=== PATIENT | female | born 1970 | race Caucasian/White ===

== ENCOUNTER 2016-08-10 18:20 | Emergency (ER) | payer BC ==
[2016-08-10 20:03] LABS: BASOPHILS 1.1 %; BASOPHILS ABSOLUTE 0.07 10/3/uL (0.0-0.16); EOSINOPHILS 1.1 %; EOSINOPHILS ABSOLUTE 0.07 10/3/uL (0.0-0.53); ER CBC TAT 0 Hrs 05 Mins; HEMATOCRIT 36.7 % (36.0-48.0); HEMOGLOBIN 12.2 g/dL (12.0-16.0); IMMATURE GRANULOCYTES 0.2 %; IMMATURE GRANULOCYTES ABSOLUTE 0.01 10/3/uL (0.0-0.11); MEAN CORPUS HGB CONC 33.2 g/dL (32.0-36.0); MEAN CORPUSCULAR HEMOGLOB 29.6 pg (26.0-34.0); MEAN CORPUSCULAR VOLUME 89.1 fL (80-100); MEAN PLATELET VOLUME 11.3 fL (9.2-13.0); MONOCYTES 6.3 %; MONOCYTES ABSOLUTE 0.42 10/3/uL (0.21-1.20); NEUTROPHILS 61.3 %; NEUTROPHILS ABSOLUTE 4.09 10/3/uL (2.02-8.40); PLATELET COUNT 181 10/3/uL (150-400); RBC DISTRIBUTION WIDTH 13.8 % (12.0-16.0); RED CELL COUNT 4.12 10/6/uL (4.0-5.6); WHITE BLOOD CELLS 6.7 10/3/uL (4.5-10.5)
[2016-08-10 20:04] LABS: MANUAL DIFF NO %
[2016-08-10 20:12] LABS: ASCORBIC ACID (UR NOT ORDER) NEG (NEG); BILIRUBIN, URINE NEGATIVE (NEG); ER URINALYSIS TAT 0 Hrs 14 Mins; KETONE, URINE NEGATIVE (NEG); LEUKOCYTE ESTERASE(NOT OR MOD (NEG); NITRITE (URINE) NEG (NEG); WBC (NOT ORDERED) (RFLEX) 10 (0-5)
[2016-08-10 20:21] LABS: A/G RATIO 1.1 (0.7-1.9); ALBUMIN 4.3 G/DL (3.5-5.0); ALKALINE PHOSPHATASE 73 U/L (45-117); BUN (BLOOD UREA NITROGEN) 10 MG/DL (6-23); CALCIUM, SERUM 8.6 MG/DL (8.5-10.4); CHLORIDE, SERUM 109 MMOL/L (96-112); CO2 (CARBON DIOXIDE) 25 MMOL/L (24-34); CREATININE 0.88 MG/DL (0.55-1.02); GFR AFRICAN AMERICAN 93 ML/MIN (>=60); GFR NON AFRICAN AMERICAN 80 ML/MIN (>=60); GLOBULIN 3.8 G/DL (2.5-4.1); GLUCOSE, SERUM 110 MG/DL (60-99); POTASSIUM, SERUM 3.6 MMOL/L (3.5-5.3); SGOT(AST) 12 U/L (5-40); SGPT(ALT) 18 U/L (5-65); SODIUM, SERUM 143 MMOL/L (135-148); TOTAL BILIRUBIN 0.4 MG/DL (0-1.2); TOTAL PROTEIN 8.1 G/DL (6.0-8.5)
== END 2016-08-10 21:18 | disposition home or self-care (01) ==
LOC: ER 18:20
PROVIDERS: Physician Assistant
DX: R51 Headache (principal); F41.9 Anxiety disorder, unspecified; F17.200 Nicotine dependence, unspecified, uncomplicated
CPT/HCPCS: 70450; 80053; 81001; 83690; 84703; 85025; 87086; 96372; 99285; J1885; J2765